=== PATIENT | female | born 1970 | race Caucasian/White ===

== ENCOUNTER → 2018-10-02 | Outpatient (CLI) | payer OTHER ==
--- NOTE | 2018-10-02 13:19 | FL ---
EXAMINATION TYPE: FL barium swallow w video DATE OF EXAM: 10/02/2018 MODIFIED SWALLOW / DEGLUTITION STUDY CLINICAL HISTORY: Dysphagia. TECHNIQUE: Deglutition study is performed utilizing thin liquid barium, honey and nectar thick liqui d barium, barium thick applesauce, and barium coated cracker. COMPARISON: None. FINDINGS: 25 seconds of fluoroscopy time was utilized. 0 images were provided for interpretation. The oral and pharyngeal phases show satisfactory initiation and propagation with all modalities tested. Normal mastication is seen with solid modalities tested. One episode of transient penetration was vi sualized with a straw. Otherwise, there is no evidence of penetration or aspiration with any modality tested. No significant pharyngeal residue was appreciated. IMPRESSION: Essentially normal deglutition study. Please refer to speech therapist notes for further details if necessary.
== END | disposition home or self-care (01) ==
LOC: RADFLMAIN 11:20
PROVIDERS: ATTEND Otolaryngology Facial Plastic Surgery
DX: R13.10 Dysphagia, unspecified (principal)
CPT/HCPCS: 74230

== ENCOUNTER → 2018-10-02 | Outpatient (CLI) | payer OTHER ==
--- NOTE | 2018-10-03 02:16 | MR ---
EXAMINATION TYPE: MR elbow RT wo con DATE OF EXAM: 10/02/2018 COMPARISON: None HISTORY: Rt elbow pain/Medial and lateral epicondylitis / Bone lesion Standard multiplanar, multisequence MRI departmental protocol Multiplanar, multisequence images of the right elbow were acquired. FINDINGS: Triceps tendon is intact. Brachialis tendon is intact. Biceps tendon is intact. The collate ral ligaments appear intact. There is a mild elbow joint effusion. There is a 10 x 5 mm area of edema in the olecranon process of the ulna. There is no evidence of a soft tissue mass. There is no eviden ce of a fracture. IMPRESSION: There is a small area of bone bruise involving the posterior olecranon process of the ulna. Mild elbo w joint effusion consistent with nonspecific synovitis. No evidence of ligament or tendon tear.
== END | disposition home or self-care (01) ==
LOC: RADMRIMAIN 18:22
PROVIDERS: ATTEND Orthopaedic Surgery
DX: M25.421 Effusion, right elbow (principal); T14.8XXA Other injury of unspecified body region, initial encounter
CPT/HCPCS: 74230

== ENCOUNTER → 2018-10-10 | Outpatient (CLI) | payer OTHER ==
--- NOTE | 2018-10-10 11:39 | FL ---
EXAMINATION TYPE: FL barium swallow DATE OF EXAM: 10/10/2018 COMPARISON: NONE HISTORY: Dysphasia TECHNIQUE: Fluoroscopy. FINDINGS: Fluoroscopy and overhead radiographs were obtained. Thick and thin barium was utilized. [place] ble air-contrast technique is utilized. Fluoroscopy time 36 seconds. Number of images: 15 Esophagus dilates to normal caliber has normal contour gastroesophageal junction. Gastroesophageal ju nction opens to normal caliber. A few tertiary contractions are evident. No suspicious intraluminal or extramural defects are evident . IMPRESSION: 1. Mild presbyesophagus.
== END | disposition home or self-care (01) ==
LOC: RADUSWWP 09:56
PROVIDERS: ATTEND Otolaryngology Facial Plastic Surgery
DX: K22.8 Other specified diseases of esophagus (principal)
CPT/HCPCS: 74220